=== PATIENT | male | born 1935 | race Caucasian/White ===

== ENCOUNTER 2021-01-01 14:20 | Emergency (ER) | payer MEDICARE ==
[~2021-01-01] VITALS: Ht 170.2 cm; Wt 102.6 kg
[2021-01-01 15:56] LABS: ALANINE AMINOTRANSFERASE 21 U/L (12-78); ALBUMIN 3.2 g/dL (3.4-5.0); ANION GAP 3 mmol/L (5-15); CALCIUM 8.7 mg/dL (8.5-10.1); CHLORIDE 112 mmol/L (98-107); CREATININE 1.31 mg/dL (0.7-1.3)
[2021-01-01 15:56] LABS: MICROSCOPIC INDICATED
[2021-01-01 15:57] LABS: BASOPHILS % (AUTO) 1 % (0-1); EOSINOPHILS % (AUTO) 3 % (1-7); LYMPHOCYTES % (AUTO) 13 % (22-44); MEAN CORPUSCULAR HEMOGLOBIN 33.3 pg (27.5-34.5); MEAN CORPUSCULAR HGB CONC 34.2 g/dL (33.2-36.2); MEAN PLATELET VOLUME 6.9 fL (7.4-10.4); MONOCYTES % (AUTO) 7 % (2-9); NEUTROPHILS % (AUTO) 77 % (42-75); PLATELET COUNT 191 x10^3/uL (130-400); RED BLOOD COUNT 4.36 x10^6/uL (4.38-5.82); RED CELL DISTRIBUTION WIDTH 14.5 % (9.4-14.8)
[2021-01-01 15:59] LABS: ALKALINE PHOSPHATASE 63 U/L (45-117); BILIRUBIN,TOTAL 1.2 mg/dL (0.2-1.0); TOTAL PROTEIN 6.3 g/dL (6.4-8.2)
--- NOTE | 2021-01-01 16:45 | NUR ---
REPORT GIVEN TO JULIAN JUÁREZ.
--- NOTE | 2021-01-01 17:47 | NUR ---
OFF THE FLOOR TO CT
[2021-01-01] MEDS ORDERED: OMNIPAQUE 350 MG/ML, 100ML BOTTLE ONE (18:23)
[2021-01-01 19:09] VITALS: BP 127/61
--- NOTE | 2021-01-01 20:22 | NUR ---
TASK RN: DC EDUCATION PROVIDED, PT DEMONSTRATES UNDERSTANDING. PT AMBULATED STEADILY TO DC WITH RN AND FRIEND.
== END 2021-01-01 20:24 | disposition home or self-care (01) ==
LOC: ED 17:01
DX: R10.9 Unspecified abdominal pain (principal); I10 Essential (primary) hypertension; E78.5 Hyperlipidemia, unspecified
CPT/HCPCS: 36415; 74021; 74177; 80053; 81001; 83690; 85025; 99285; Q9967